=== PATIENT | male | born 1975 | race Caucasian/White ===

== ENCOUNTER 2019-10-01 06:00 | Day surgery (SDC) | payer OTHER ==
[~2019-10-01 06:00] MED LIST: ATORVASTATIN CA10 MG PO; ZESTRIL20 MG PO
== END 2019-10-01 17:00 | disposition home or self-care (01) ==
LOC: CIR.AMB 06:00
DX: K64.4 Residual hemorrhoidal skin tags (principal); K64.8 Other hemorrhoids